=== PATIENT | female | born 1965 | race Caucasian/White ===

== ENCOUNTER 2017-09-02 08:57 | Observation (INO) | payer OTHER ==
[2017-09-02] MEDS ORDERED: Albuterol/Ipratropium NEB.SOL* Albuterol 2.5 MG/Ipratropium 0.5 MG 3 ML INH ONE (09:12)
[2017-09-02] MEDS ORDERED: NS 0.9% 1000 ML* 1,000 ML IV ONE (09:12)
[2017-09-02 09:46] LABS: ABS Basophils 0.1 10^3/ul (0-0.2); ABS Eosinophils 0.1 10^3/ul (0-0.6); ABS Monocytes 0.8 10^3/ul (0-0.8); ABS Neutrophils 10.9 10^3/ul (1.5-7.7); ABS Nucleated RBC 0 10^3/ul; Eosinophil % 0.5 % (0-6); Hematocrit 41 % (35-47); Lymphocyte % 7.5 % (25-47); Mean Corpuscular HGB Conc 35 g/dl (31-36); Mean Corpuscular Hemoglobin 30 pg (27-31); Mean Corpuscular Volume 86 fL (80-97); Mean Platelet Volume 7.9 um3 (7.4-10.4); Nucleated Red Blood Cells % 0.1; Platelet Count 277 10^3/ul (150-450); Red Blood Count 4.73 10^6/ul (4.00-5.40); Red Cell Distribution Width 13 % (10.5-15); White Blood Count 12.9 10^3/ul (3.5-10.8)
--- OUTSIDE RECORDS SUMMARY | 2017-09-02 09:56 | XMS REPORT ---
:1965 External Reference #:[id number] Author Organization [employer] Address [address] [facility] [place] [address] Phone [phone] Care Team Providers Name Role Phone Sharath Delgado MD Care Team Information Conveyor System Dispatcher Unavailable Malcolm Magallanes MD Primary Care Physician Unavailable Payers Type Date Identification Numbers Payment Provider Subscriber Commercial Expires: Policy Number: [employer] Sequeira 2015 [id number] Group Number: [id number] [address] PayID: [id number] [place] [address] Commercial Effective: 2015 Policy Number: [id number] [employer] Messi Sequeira PayID: [id number] [address] [place] [address] Problems Description No Information Family History Date Family Member(s) Problem(s) Comments General Rheumatoid Arthritis Father Lung Cancer Mother Heart Disease Siblings 2 Social History Type Date Description Comments Cigarette Use Former Cigarette Smoker Smoking Patient is a former smoker pt quit in 1982 Exercise Type/Frequency Exercises regularly Allergies, Adverse Reactions, Alerts Date Description Reaction Status Severity Comments 09/27/2005 Ceftin Urticaria active hives 01/01/2006 Norvasc active At 10 mg dose hives 06/16/2015 Lyrica Urticaria active 06/16/2015 Tetanus Toxoids cellulitus active 06/16/2015 Bactrim Urticaria active 07/25/2015 Sulfa Antibiotics Urticaria active Medications Medication Date Status Form Strength Qnty SIG Indications Ordering Provider Meloxicam 08/20 Active Tablets 7.5mg 45tab take one s tab twice Juan J, daily as M.D. needed for pain, avoid other nsaids Compression 08/20 Active Misc 2unit please use Anup Stockings /2018 s daily as Juan J, needed for M.D. leg/foot varicose veins Hydroxychloroquine 09/27 Active Tablets 200mg 60tab take 2 M06.4 Anup Sulfate s tablets by Juan J, mouth every M.D. day ongoing Wrist Brace 07/24 Active Misc 2unit use for the 75. s wrists Juan J, daily to M.D. 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 Zolpidem Tartrate Active Tablets 5mg 1/2 to 1 Unknown /0000 tab by mouth every night at bedtime as needed Vicodin Active Tablets 5-300mg take 1 by Unknown /0000 mouth every 6 hours as needed Trazodone HCL Active Tablets 50mg 1 - 2 Unknown /0000 tablet at bedtime as needed Metoprolol Active Tablets 25mg 1 by mouth Unknown Succinate ER /0000 ER 24HR every day Multi Complete Active Capsules daily Unknown /0000 Plaquenil 08/15 Hx Tablets 200mg 180ta Take 2 M06.4 bs Tablets By Juan J, - Mouth Every M.D. 09/27 Day Plaquenil 08/15 Hx Tablets 200mg 180ta Take 2 M06.4 bs Tablets By Juan J, - Mouth Every M.D. 09/27 Day Lisinopril 12/11 Hx Tablets 10mg 30tab 1 PO qd Qutayb s S. - Maghaydah 06/15 , M.D. Norvasc 12/05 Hx Tablets 10mg 30tab 1 po qd Qutayb s S. - Maghaydah 12/10 , M.D. Norvasc 11/07 Hx Tablets 5mg 30tab 1 po qd Qutayb s S. - Maghaydah 12/05 , M.D. /2005 Protonix 10/01 Hx Tablets 40mg 1 po qd Qutayb S. [facility] 11/07 , M.D. /2005 Sertraline 09/27 Hx 50mg one qd Qutayb S. [facility] 10/01 , M.D. /2005 Aspirin Enteric 09/27 Hx Tablets 81mg qd Qutaybeh S. [facility] 10/01 , M.D. /2005 Simvastatin 09/27 Hx Tablets 80mg one qd Qutayb S. [facility] 10/01 , M.D. /2005 Ambien 09/27 Hx Tablets 5mg 30tab Take One s Tablet At S. - Bedtime [facility] 06/15 , M.D. /2015 Metoprolol 09/27 Hx Tablets 50mg 60tab 1 po bid s [facility] 10/01 , M.D. /2005 Vitamin D Hx Tablets 2000Unit 1 by mouth Unknown /0000 every day - 12/24 Medications Administered in Office Medication Date Status Form Strength Qnty SIG Indications Ordering Provider PPD Administered Injection Unknown 2 Immunizations CPT Code Status Date Vaccine Reaction Lot # [id number] Given 11/07/2015 Influenza Virus Vaccine, no immediate reaction [id number] Quadrivalent, Split, noted Preservative Free [id number] Given 02/13/2014 Tdap - Tetanus/Diptheria/Acellular Pertussis Vital Signs Date Vital Result Comment 08/20/2017 Height 64.5 inches 5'4.50" Weight 282.25 lb Heart Rate 84 /min BP Systolic Sitting 132 mmHg BP Diastolic Sitting 82 mmHg Pain Level 4 O2 % BldC Oximetry 97 % BMI (Body Mass Index) 47.7 kg/m2 12/24/2016 Height 64.5 inches 5'4.50" Weight 279.50 lb Heart Rate 77 /min BP Systolic Sitting 147 mmHg BP Diastolic Sitting 96 mmHg Respiratory Rate 14 /min Pain Level 4 BMI (Body Mass Index) 47.2 kg/m2 07/24/2016 Height 64.5 inches 5'4.50" Weight 275.00 lb Heart Rate 84 /min BP Systolic Sitting 136 mmHg BP Diastolic Sitting 94 mmHg Respiratory Rate 14 /min Pain Level 6 BMI (Body Mass Index) 46.5 kg/m2 01/03/2016 Height 64.5 inches 5'4.50" Weight 263.00 lb Heart Rate 72 /min BP Systolic Sitting 106 mmHg BP Diastolic Sitting 70 mmHg Respiratory Rate 14 /min Body Temperature 97.1 F Pain Level 4 BMI (Body Mass Index) 44.4 kg/m2 11/07/2015 Height 64.5 inches 5'4.50" Weight 270.50 lb Heart Rate 72 /min BP Systolic Sitting 110 mmHg BP Diastolic Sitting 70 mmHg Respiratory Rate 14 /min Body Temperature 98.5 F BMI (Body Mass Index) 45.7 kg/m2 09/26/2015 Height 64.5 inches 5'4.50" Weight 264.00 lb Heart Rate 134 /min BP Systolic Sitting 136 mmHg BP Diastolic Sitting 86 mmHg Respiratory Rate 14 /min Body Temperature 99.0 F Pain Level 2 BMI (Body Mass Index) 44.6 kg/m2 08/16/2015 Height 64.5 inches 5'4.50" Weight 273.00 lb Heart Rate 84 /min BP Systolic Sitting 138 mmHg BP Diastolic Sitting 90 mmHg Body Temperature 98.8 F Pain Level 7 BMI (Body Mass Index) 46.1 kg/m2 07/25/2015 Height 64.5 inches 5'4.50" Weight 268.31 lb Heart Rate 88 /min BP Systolic Sitting 142 mmHg BP Diastolic Sitting 98 mmHg Body Temperature 98.9 F Pain Level 7 BMI (Body Mass Index) 45.3 kg/m2 01/01/2006 Height 64 inches 5'4" Weight 246.00 lb Heart Rate 68 /min BP Systolic Sitting 130 mmHg BP Diastolic Sitting 90 mmHg BP Systolic Standing 124 mmHg BP Diastolic Standing 90 mmHg Respiratory Rate 16 /min Body Temperature 97.9 F BMI (Body Mass Index) 42.2 kg/m2 12/05/2005 Height 64 inches 5'4" Weight 247.00 lb Heart Rate 88 /min BP Systolic Sitting 130 mmHg BP Diastolic Sitting 90 mmHg Respiratory Rate 16 /min BMI (Body Mass Index) 42.4 kg/m2 11/07/2005 Height 64 inches 5'4" Weight 242.00 lb Heart Rate 80 /min BP Systolic Sitting 140 mmHg R BP Diastolic Sitting 100 mmHg R BMI (Body Mass Index) 41.5 kg/m2 10/01/2005 Height 64 inches 5'4" Weight 250.00 lb Heart Rate 77 /min BP Systolic Sitting 138 mmHg BP Diastolic Sitting 90 mmHg BMI (Body Mass Index) 42.9 kg/m2 Results Test Date Test Result H/L Range Note Comp Metabolic Panel 08/13/2017 Sodium 140 mmol/L 135-145 Potassium 4.5 mmol/L 3.5-5.0 Chloride 104 mmol/L 101-111 Co2 Carbon Dioxide 30 mmol/L 22-32 Anion Gap 6 mmol/L 2-11 Glucose 86 mg/dL 70-100 Blood Urea Nitrogen 15 mg/dL 6-24 Creatinine 0.87 mg/dL 0.51-0.95 BUN/Creatinine Ratio 17.2 8-20 Calcium 9.9 mg/dL 8.6-10.3 Total Protein 7.1 g/dL 6.4-8.9 Albumin 3.9 g/dL 3.2-5.2 Globulin 3.2 g/dL 2-4 Albumin/Globulin Ratio 1.2 1-3 Total Bilirubin 0.50 mg/dL 0.2-1.0 Alkaline Phosphatase 70 U/L 34-104 Alt 27 U/L 7-52 Ast 26 U/L 13-39 Egfr Non- 67.9 >60 Egfr 82.1 >60 1 Laboratory test finding 08/13/2017 Erythrocyte Sed Rate 13 mm/Hr 0-30 2 C Reactive Protein 4.01 mg/L <8.01 3 CBC Auto Diff 08/13/2017 White Blood Count 6.3 10^3/uL 3.5-10.8 Red Blood Count 4.53 10^6/uL 4.00-5.40 Hemoglobin 13.9 g/dL 12.0-16.0 Hematocrit 40 % 35-47 Mean Corpuscular Volume 88 fL 80-97 Mean Corpuscular Hemoglobin 31 pg 27-31 Mean Corpuscular HGB Conc 35 g/dL 31-36 Red Cell Distribution Width 14 % 10.5-15 Platelet Count 261 10^3/uL 150-450 Mean Platelet Volume 8.8 um3 7.4-10.4 Abs Neutrophils 3.1 10^3/uL 1.5-7.7 Abs Lymphocytes 2.6 10^3/uL 1.0-4.8 Abs Monocytes 0.4 10^3/uL 0-0.8 Abs Eosinophils 0.1 10^3/uL 0-0.6 Abs Basophils 0.1 10^3/uL 0-0.2 Abs Nucleated RBC 0 10^3/uL Granulocyte % 50.1 % 38-83 Lymphocyte % 40.8 % 25-47 Monocyte % 6.7 % 0-7 Eosinophil % 1.4 % 0-6 Basophil % 1.0 % 0-2 Nucleated Red Blood Cells % 0 Laboratory test finding 12/20/2016 Erythrocyte Sed Rate 12 mm/Hr 0-30 C Reactive Protein 4.08 mg/L < 5.00 4 CBC Auto Diff 12/20/2016 White Blood Count 5.5 10^3/uL 3.5-10.8 Red Blood Count 4.92 10^6/uL 4.0-5.4 Hemoglobin 14.2 g/dL 12.0-16.0 Hematocrit 43 % 35-47 Mean Corpuscular Volume 87 fL 80-97 Mean Corpuscular Hemoglobin 29 pg 27-31 Mean Corpuscular HGB Conc 33 g/dL 31-36 Red Cell Distribution Width 13 % 10.5-15 Platelet Count 326 10^3/uL 150-450 Mean Platelet Volume 8 um3 7.4-10.4 Abs Neutrophils 3.0 10^3/uL 1.5-7.7 Abs Lymphocytes 2.0 10^3/uL 1.0-4.8 Abs Monocytes 0.3 10^3/uL 0-0.8 Abs Eosinophils 0.1 10^3/uL 0-0.6 Abs Basophils 0.1 10^3/uL 0-0.2 Abs Nucleated RBC 0.01 10^3/uL Granulocyte % 55.3 % 38-83 Lymphocyte % 36.3 % 25-47 Monocyte % 5.9 % 1-9 Eosinophil % 1.6 % 0-6 Basophil % 0.9 % 0-2 Nucleated Red Blood Cells % 0.1 Comp Metabolic Panel 12/20/2016 Sodium 137 mmol/L 133-145 Potassium 4.3 mmol/L 3.5-5.0 Chloride 102 mmol/L 101-111 Co2 Carbon Dioxide 30 mmol/L 22-32 Anion Gap 5 mmol/L 2-11 Glucose 94 mg/dL 70-100 Blood Urea Nitrogen 12 mg/dL 6-24 Creatinine 0.95 mg/dL 0.51-0.95 BUN/Creatinine Ratio 12.6 8-20 Calcium 9.9 mg/dL 8.6-10.3 Total Protein 7.2 g/dL 6.4-8.9 Albumin 3.9 g/dL 3.2-5.2 Globulin 3.3 g/dL 2-4 Albumin/Globulin Ratio 1.2 1-3 Total Bilirubin 0.60 mg/dL 0.2-1.0 Alkaline Phosphatase 91 U/L 34-104 Alt 20 U/L 7-52 Ast 27 U/L 13-39 Egfr Non- 61.5 >60 Egfr 79.1 >60 5 Laboratory test finding 07/19/2016 Erythrocyte Sed Rate 14 mm/Hr 0-30 6 C Reactive Protein 7.43 mg/L High < 5.00 7 CBC Auto Diff 07/19/2016 White Blood Count 7.0 10^3/uL 3.5-10.8 Red Blood Count 5.12 10^6/uL 4.0-5.4 Hemoglobin 14.8 g/dL 12.0-16.0 Hematocrit 44 % 35-47 Mean Corpuscular Volume 86 fL 80-97 Mean Corpuscular Hemoglobin 29 pg 27-31 Mean Corpuscular HGB Conc 34 g/dL 31-36 Red Cell Distribution Width 13 % 10.5-15 Platelet Count 284 10^3/uL 150-450 Mean Platelet Volume 8 um3 7.4-10.4 Abs Neutrophils 4.4 10^3/uL 1.5-7.7 Abs Lymphocytes 2.0 10^3/uL 1.0-4.8 Abs Monocytes 0.4 10^3/uL 0-0.8 Abs Eosinophils 0.1 10^3/uL 0-0.6 Abs Basophils 0.1 10^3/uL 0-0.2 Abs Nucleated RBC 0 10^3/uL Granulocyte % 63.9 % 38-83 Lymphocyte % 28.2 % 25-47 Monocyte % 5.9 % 1-9 Eosinophil % 0.9 % 0-6 Basophil % 1.1 % 0-2 Nucleated Red Blood Cells % 0.1 Comp Metabolic Panel 07/19/2016 Sodium 137 mmol/L 133-145 Potassium 4.1 mmol/L 3.5-5.0 Chloride 102 mmol/L 101-111 Co2 Carbon Dioxide 28 mmol/L 22-32 Anion Gap 7 mmol/L 2-11 Glucose 113 mg/dL High 70-100 Blood Urea Nitrogen 14 mg/dL 6-24 Creatinine 1.00 mg/dL High 0.51-0.95 BUN/Creatinine Ratio 14.0 8-20 Calcium 10.0 mg/dL 8.6-10.3 Total Protein 7.6 g/dL 6.4-8.9 Albumin 4.0 g/dL 3.2-5.2 Globulin 3.6 g/dL 2-4 Albumin/Globulin Ratio 1.1 1-3 Total Bilirubin 0.60 mg/dL 0.2-1.0 Alkaline Phosphatase 84 U/L 34-104 Alt 15 U/L 7-52 Ast 19 U/L 13-39 Egfr Non- 58.0 >60 Egfr 74.6 >60 8 Pthi 07/19/2016 Calcium (PTH Intact) 9.9 mg/dL 8.6-10.3 PTH Intact 5.7 pmol/L 1.3-9.3 Laboratory test finding 12/27/2015 Erythrocyte Sed Rate 16 mm/Hr 0-30 9 C Reactive Protein 3.93 mg/L < 5.00 10 CBC Auto Diff 12/27/2015 White Blood Count 7.3 10^3/uL 3.5-10.8 Red Blood Count 5.23 10^6/uL 4.0-5.4 Hemoglobin 15.2 g/dL 12.0-16.0 Hematocrit 45 % 35-47 Mean Corpuscular Volume 87 fL 80-97 Mean Corpuscular Hemoglobin 29 pg 27-31 Mean Corpuscular HGB Conc 34 g/dL 31-36 Red Cell Distribution Width 13 % 10.5-15 Platelet Count 353 10^3/uL 150-450 Mean Platelet Volume 8 um3 7.4-10.4 Abs Neutrophils 4.6 10^3/uL 1.5-7.7 Abs Lymphocytes 2.2 10^3/uL 1.0-4.8 Abs Monocytes 0.4 10^3/uL 0-0.8 Abs Eosinophils 0.1 10^3/uL 0-0.6 Abs Basophils 0.1 10^3/uL 0-0.2 Abs Nucleated RBC 0.01 10^3/uL Granulocyte % 62.5 % 38-83 Lymphocyte % 29.9 % 25-47 Monocyte % 5.4 % 1-9 Eosinophil % 1.2 % 0-6 Basophil % 1.0 % 0-2 Nucleated Red Blood Cells % 0.1 Comp Metabolic Panel 12/27/2015 Sodium 137 mmol/L 133-145 Potassium 4.3 mmol/L 3.5-5.0 Chloride 102 mmol/L 101-111 Co2 Carbon Dioxide 28 mmol/L 22-32 Anion Gap 7 mmol/L 2-11 Glucose 91 mg/dL 70-100 Blood Urea Nitrogen 15 mg/dL 6-24 Creatinine 0.92 mg/dL 0.51-0.95 BUN/Creatinine Ratio 16.3 8-20 Calcium 10.4 mg/dL High 8.6-10.3 Total Protein 8.3 g/dL 6.4-8.9 Albumin 4.5 g/dL 3.2-5.2 Globulin 3.8 g/dL 2-4 Albumin/Globulin Ratio 1.2 1-3 Total Bilirubin 0.60 mg/dL 0.2-1.0 Alkaline Phosphatase 85 U/L 34-104 Alt 18 U/L 7-52 Ast 20 U/L 13-39 Egfr Non- 64.1 >60 Egfr 82.4 >60 11 Urine Culture And Sensitivities 11/29/2015 Urine Culture SEE RESULT BELOW 12, 13 Urine Culture And Sensitivities 11/07/2015 Urine Culture SEE RESULT BELOW 14 Urinalysis Profile 11/07/2015 Urine Color Yellow Urine Appearance Clear Urine Specific Golden 1.013 1.010-1.030 Urine pH 5.0 5-9 Urine Urobilinogen Negative Negative Urine Ketones Negative Negative Urine Protein Negative Negative Urine Leukocytes Negative Negative Urine Blood Negative Negative Urine Nitrite Negative Negative Urine Bilirubin Negative Negative Urine Glucose Negative Negative Laboratory test finding 09/12/2015 C Reactive Protein 6.18 mg/L High < 5.00 15 Erythrocyte Sed Rate 13 mm/Hr 0-30 CBC Auto Diff 09/12/2015 White Blood Count 6.0 10^3/uL 3.5-10.8 Red Blood Count 4.48 10^6/uL 4.0-5.4 Hemoglobin 13.1 g/dL 12.0-16.0 Hematocrit 40 % 35-47 Mean Corpuscular Volume 89 fL 80-97 Mean Corpuscular Hemoglobin 29 pg 27-31 Mean Corpuscular HGB Conc 33 g/dL 31-36 Red Cell Distribution Width 13 % 10.5-15 Platelet Count 256 10^3/uL 150-450 Mean Platelet Volume 8 um3 7.4-10.4 Abs Neutrophils 3.4 10^3/uL 1.5-7.7 Abs Lymphocytes 2.0 10^3/uL 1.0-4.8 Abs Monocytes 0.3 10^3/uL 0-0.8 Abs Eosinophils 0.2 10^3/uL 0-0.6 Abs Basophils 0.1 10^3/uL 0-0.2 Abs Nucleated RBC 0.01 10^3/uL Granulocyte % 57.5 % 38-83 Lymphocyte % 33.0 % 25-47 Monocyte % 4.8 % 1-9 Eosinophil % 3.7 % 0-6 Basophil % 1.0 % 0-2 Nucleated Red Blood Cells % 0.1 Comp Metabolic Panel 09/12/2015 Sodium 144 mmol/L 133-145 Potassium 4.0 mmol/L 3.5-5.0 Chloride 107 mmol/L 101-111 Co2 Carbon Dioxide 28 mmol/L 22-32 Anion Gap 9 mmol/L 2-11 Glucose 94 mg/dL 70-100 Blood Urea Nitrogen 12 mg/dL 6-24 Creatinine 0.86 mg/dL 0.51-0.95 BUN/Creatinine Ratio 14.0 8-20 Calcium 9.3 mg/dL 8.6-10.3 Total Protein 6.5 g/dL 6.4-8.9 Albumin 3.7 g/dL 3.2-5.2 Globulin 2.8 g/dL 2-4 Albumin/Globulin Ratio 1.3 1-3 Total Bilirubin 0.30 mg/dL 0.2-1.0 Alkaline Phosphatase 69 U/L 34-104 Alt 32 U/L 7-52 Ast 28 U/L 13-39 Egfr Non- 69.3 >60 Egfr 89.1 >60 16 Laboratory test finding 07/26/2015 Angiotensin Converting Enzyme 51 U/L 8 - 53 17 C Reactive Protein 2.09 mg/L < 5.00 18 Celiac Panel 07/26/2015 Tissue Transglutaminase IgA Ab <1.2 U/mL 19 Immunoglobulin A 437 mg/dL 61 - 356 Celiac Interpretation See Comment 20 Laboratory test finding 07/26/2015 Cyclic Citrullinated Pep Igg <15.6 U 21 Erythrocyte Sed Rate 18 mm/Hr 0-30 22 Hla B27 07/26/2015 Hla B27 Negative 23 Hla B27 Interp See Comment 24 Laboratory test finding 07/26/2015 Anti Double Stranded Dna AB <12.3 IU/mL 25 Lyme Disease Serology Negative Negative 26 Uric Acid 4.7 mg/dL 2.3-6.6 27 Rheumatoid Factor <15 IU/mL <15 28 Anti Nuclear Antibody 1.1 U 29 T3 Total 1.24 ng/mL 0.87-1.78 30 Creatine Kinase(CK) 41 U/L 10-223 31 Vitamin B12 398 pg/mL 180-914 32 Free Cortisol Serum 0.10 g/dL 33 1 Because ethnic data is not always readily available, this report includes an eGFR for both -Americans and non- Americans. The National Kidney Disease Education Program (NKDEP) does not endorse the use of the MDRD equation for patients that are not between the ages of 18 and 70, are , have extremes of body size, muscle mass, or nutritional status, or are non- or non-. According to the National Kidney Foundation, irrespective of diagnosis, the stage of the disease is based on the level of kidney function: Stage Description GFR(mL/min/1.73 m(2)) 1 Kidney damage with normal or decreased GFR 90 2 Kidney damage with mild decrease in GFR 60-89 3 Moderate decrease in GFR 30-59 4 Severe decrease in GFR 15-29 5 Kidney failure <15 (or dialysis) 2 Please check 2 days before follow up 3 Please check 2 days before follow up 4 Acute inflammation: >10.00 5 Because ethnic data is not always readily available, this report includes an eGFR for both -Americans and non- Americans. The National Kidney Disease Education Program (NKDEP) does not endorse the use of the MDRD equation for patients that are not between the ages of 18 and 70, are , have extremes of body size, muscle mass, or nutritional status, or are non- or non-. According to the National Kidney Foundation, irrespective of diagnosis, the stage of the disease is based on the level of kidney function: Stage Description GFR(mL/min/1.73 m(2)) 1 Kidney damage with normal or decreased GFR 90 2 Kidney damage with mild decrease in GFR 60-89 3 Moderate decrease in GFR 30-59 4 Severe decrease in GFR 15-29 5 Kidney failure <15 (or dialysis) 6 Please check 2 days before the visit 7 Acute inflammation: >10.00 8 Because ethnic data is not always readily available, this report includes an eGFR for both -Americans and non- Americans. The National Kidney Disease Education Program (NKDEP) does not endorse the use of the MDRD equation for patients that are not between the ages of 18 and 70, are , have extremes of body size, muscle mass, or nutritional status, or are non- or non-. According to the National Kidney Foundation, irrespective of diagnosis, the stage of the disease is based on the level of kidney function: Stage Description GFR(mL/min/1.73 m(2)) 1 Kidney damage with normal or decreased GFR 90 2 Kidney damage with mild decrease in GFR 60-89 3 Moderate decrease in GFR 30-59 4 Severe decrease in GFR 15-29 5 Kidney failure <15 (or dialysis) 9 Please check 2 days before her visit 10 Acute inflammation: >10.00 11 Because ethnic data is not always readily available, this report includes an eGFR for both -Americans and non- Americans. The National Kidney Disease Education Program (NKDEP) does not endorse the use of the MDRD equation for patients that are not between the ages of 18 and 70, are , have extremes of body size, muscle mass, or nutritional status, or are non- or non-. According to the National Kidney Foundation, irrespective of diagnosis, the stage of the disease is based on the level of kidney function: Stage Description GFR(mL/min/1.73 m(2)) 1 Kidney damage with normal or decreased GFR 90 2 Kidney damage with mild decrease in GFR 60-89 3 Moderate decrease in GFR 30-59 4 Severe decrease in GFR 15-29 5 Kidney failure <15 (or dialysis) 12 [id number] 13 SEE RESULT BELOW Name: MARION SEQUEIRA : [address]: Sharath Delgado MD Acct: [id number] Unit: [id number] AGE: 50 Location: [facility] Re11/29/15 SEX: F Status: REG REF SPEC: [id number] CASA: 11/29/15 [facility] DR: Sharath Delgado MD REQ: [id number] RECD: 11/29/15 STATUS: CHICA AVILA DR: Messi Rainey MD _ SOURCE: URINE SPDESC: ORDERED: Urine Culture COMMENTS: [id number] Procedure Result Reported Site Urine Culture Final 12/01/15- 0914 ML Organism 1 ESCHERICHIA COLI [place] Count >100,000 (Many) CFU/ML 1. ESCHERICHIA COLI M.I.C. RX --------- ------ Ampicillin 8 S Cefazolin <=4 S Cefepime <=1 S Ceftriaxone <=1 S Ciprofloxacin <=0.25 S Gentamicin <=1 S Levofloxacin <=0.12 S Meropenem <=0.25 S Nitrofurantoin <=16 S Tetracycline <=1 S Pipercillin/Tazobactam <=4 S Trimethoprim/Sulfamethoxazole <=20 S Amoxicillin/Clavulanic Acid <=2 S Aztreonam <=1 S Contact the Microbiology Department for any additional antibiotic reporting. * ML - MAIN LAB ([facility]) . END OF REPORT * ML=Testing performed at Main Lab DEPARTMENT OF PATHOLOGY, [address] [place] [address] Fadi Yang M.D. Director [facility] # [id number] 14 SEE RESULT BELOW Name: MARION SEQUEIRA : [address]: Messi Rainey MD Acct: [id number] Unit: [id number] AGE: 50 Location: [facility] Re11/07/15 SEX: F Status: REG REF SPEC: [id number] CASA: 11/07/15-1454 [facility] DR: Messi Rainey MD REQ: [id number] RECD: 11/08/15 STATUS: COMP _ SOURCE: URINE SPDESC: ORDERED: Urine Culture Procedure Result Reported Site Urine Culture Final 11/09/15- 1331 ML No Growth (<1,000 CFU/mL) * ML - MAIN LAB ([facility]) . END OF REPORT * ML=Testing performed at Main Lab DEPARTMENT OF PATHOLOGY, [address] [place] [address] Fadi Yang M.D. Director [facility] # [id number] 15 Acute inflammation: >10.00 16 Because ethnic data is not always readily available, this report includes an eGFR for both -Americans and non- Americans. The National Kidney Disease Education Program (NKDEP) does not endorse the use of the MDRD equation for patients that are not between the ages of 18 and 70, are , have extremes of body size, muscle mass, or nutritional status, or are non- or non-. According to the National Kidney Foundation, irrespective of diagnosis, the stage of the disease is based on the level of kidney function: Stage Description GFR(mL/min/1.73 m(2)) 1 Kidney damage with normal or decreased GFR 90 2 Kidney damage with mild decrease in GFR 60-89 3 Moderate decrease in GFR 30-59 4 Severe decrease in GFR 15-29 5 Kidney failure <15 (or dialysis) 17 Test Performed by: [place] [address] Cardiology Nurse Practitioner: Jaun Hill II, M.D., Ph.D. 18 Acute inflammation: >10.00 19 REFERENCE VALUE <4.0 (Negative) Test Performed by: [place] [address] Cardiology Nurse Practitioner: Jaun Hill II, M.D., Ph.D. 20 Negative serology. Celiac disease unlikely. However, approximately 10% of patients with celiac disease are seronegative. Also, patients who are already adhering to a gluten-free diet may be seronegative. If celiac disease is highly clinically suspected, consider HLA-DQ typing. Test Performed by: [place] [address] Cardiology Nurse Practitioner: Jaun Hill II, M.D., Ph.D. 21 REFERENCE VALUE <20.0 (Negative) Test Performed by: [place] [address] Cardiology Nurse Practitioner: Jaun Hill II, M.D., Ph.D. 22 Please check this week 23 REFERENCE VALUE Not Applicable 24 RESULT: HLA-B27 antigen was not detected. ADDITIONAL INFORMATION Method: Flow Cytometry Performing Laboratory CLIA# [id number] Test Performed by: [place] [address] Cardiology Nurse Practitioner: Jaun Hill II, M.D., Ph.D. 25 REFERENCE VALUE <30.0 (Negative) Test Performed by: [place] [address] Cardiology Nurse Practitioner: Jaun Hill II, M.D., Ph.D. 26 Serologic response to B. burgdorferi infection is not detected, but cannot rule out early infection during which low or undetectable antibody levels to B. burgdorferi may be present. If clinically indicated, a new serum specimen should be submitted in 7-14 days. Test Performed by: [place] [address] Cardiology Nurse Practitioner: Jaun Hill II, M.D., Ph.D. 27 Please check this week 28 Test Performed by: [place] [address] Cardiology Nurse Practitioner: Jaun Hill II, M.D., Ph.D. 29 Interpretation: Weak Positive (1.1-2.9) REFERENCE VALUE <=1.0 (Negative) Test Performed by: [place] [address] Cardiology Nurse Practitioner: Jaun Hill II, M.D., Ph.D. 30 Please check this week 31 Please check this week 32 Normal Range 180 to 914 Indeterminate Range 145 to 180 Deficient Range <145 33 Adult Reference Ranges for Cortisol, Free, LC/MS/MS: 8:00 - 10:00 AM 0.07-0.93 mcg/dL 4:00 - 6:00 PM 0.04-0.45 mcg/dL 10:00 - 11:00 PM 0.04-0.35 mcg/dL Test Performed by: [facility] [address] [place] [address] Procedures Date CPT Code Description Status 07/08/2010 67691 EKG, Interpretation Only Completed 05/18/2010 98055 Holter Monitoring 24 HR New Completed 10/01/2005 52801 EKG Tracing & Interpretation Completed 10/01/2005 99301 EKG Tracing & Interpretation Completed 09/19/2005 12513 Selective Coronary Angioplasty Completed 09/19/2005 87025 S/I/R Inj Proc Vent And Or Atrial Completed 09/19/2005 63006 S/I/R Inj Proc Vent And Or Atrial Completed 09/19/2005 69289 Coronary Angiography Completed 09/19/2005 [id number] Inj Proc LFT Vent/LFT Atrl Angio Completed 09/19/2005 48355 Inj Proc LFT Vent/LFT Atrl Angio Completed 09/19/2005 14169 Left Heart Catheterization Completed 09/18/2005 16794 Stress ECHO Interpretation/Report Hospital Completed 09/18/2005 01389 Stress ECHO Interpretation/Report Hospital Completed 09/18/2005 21387 Treadmill Interp/Report Only Completed 09/18/2005 25183 Stress Test Supervsn W/Out I/R Completed 09/18/2005 88288 Stress Test Supervsn W/Out I/R Completed Encounters Type Date Location Provider CPT E/M Dx Office Visit 12/24/2016 [facility] Anup Arita M.D. 70925 M06.4 9:00a Of Mouna Z79.899 Office Visit 07/24/2016 8:40a [facility] Anup Arita 10987 M06.4 Mouna Thorne Z79.899 M77.00 Office Visit 01/03/2016 11:40a [facility] Anup Arita 94360 M06.4 Mouna Thorne Z79.899 E83.52 Office Visit 11/07/2015 2:00p [facility] Messi Rainey, 70144 Z23 Infectious Diseases Yaw.Azalea R30.0 R82.7 Z87.440 Office Visit 09/26/2015 10:20a [facility] Anup Arita, 06304 M06.4 [facility] M.DTrena Z79.899 M79.1 Office Visit 08/16/2015 10:00a [facility] Anup Arita, 33348 M06.4 [facility] M.D. Z79.899 M79.1 M85.80 Office Visit 07/25/2015 3:00p [facility] Anup Arita, 07053 M06.4 [facility] M.DTrena R20.8 M79.1 Z79.899 Office Visit 01/01/2006 2:40p [facility] Qutaybeh S. Maghaydah, 75747 401.1 M.D. Office Visit 12/05/2005 3:20p [facility] Qutaybeh S. Maghaydah, 20586 401.0 M.D. Office Visit 11/07/2005 2:40p [facility] Qutaybeh S. Maghaydah, 44923 401.0 M.D. Office Visit 10/01/2005 9:40a [facility] Qutaybeh S. Maghaydah, 90416 786.50 M.D. 401.0 Plan of Care Future Appointment(s):10/24/2017 11:20 am - Anup Arita M.D. 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
[2017-09-02 09:58] LABS: INR 1.1 (0.77-1.02)
[2017-09-02 10:17] LABS: EGFR Non-African American 74.7 (>60)
[2017-09-02] MEDS ORDERED: Levofloxacin 750 MG IVPREMIX(* 750 MG/150 ML BAG IVPB ONE (10:35)
[2017-09-02] MEDS ORDERED: predniSONE TAB* 20 MG PO ONE (10:35)
--- NOTE | 2017-09-02 11:03 | RAD ---
INDICATION: Cough. Short of breath COMPARISON: July 26, 2015 TECHNIQUE: PA and lateral dual-energy views were obtained. FINDINGS: Bones/Soft Tissues: There are no acute bony findings. Cardiomediastinal: The cardiomediastinal silhouette is normal. Lungs: There are right middle lobe and lingular infiltrates Pleura: There are no pleural effusions. Other: None IMPRESSION: RIGHT MIDDLE LOBE AND LINGULAR INFILTRATES.
--- NOTE | 2017-09-02 11:07 | ED ---
Shortness of Breath - HPI Summary HPI Summary: This is Edilberto Conde, documenting for attending Nicho Wan MD. Pt is a 52 y/o F who presents to ED c/o shortness of breath. She rated her pain as 8/10 in severity at triage and SOB is exacerbated by walking. Symptoms began 8 days ago with a sore throat and coughing, and they progressed throughout the week. She states she feels like crap. Hasnt eaten since because she feels nauseous, but she has been drinking a lot of water. Notes bilateral upper back pain, chest pain, pain in lower abdominal area when coughing, brown urine, and an aching bladder. Two nights ago she notes a subjective fever of 103, but did not visit the ED. SOB aggravated with walking. Denies body aches and coughing up mucous. Positive sick contact with and grandson who have pneumonia. Pt denies PMHx of CHF or COPD. Pt was a smoker 35 years ago. PMHx of rheumatoid arthritis and hypertension. - History of Current Complaint Chief Complaint: EDShortnessOfBreath Time Seen by Provider: 09/02/17 09:04 Hx Obtained From: Patient, Family/Sand Caster Onset/Duration: Lasting Days Current Severity: Severe - 8/10 at triage Aggrevating Factors: Movement - Walking Associated Signs & Symptoms: Cough (Nonproductive), Chest Pain Unrelated to Cough, Fever - Allergy/Home Medications Allergies/Adverse Reactions: Allergies Allergy/AdvReac Type Severity Reaction Status Date / Time amlodipine Allergy Intermediate Hives Verified 09/02/17 11:52 amoxicillin Allergy Intermediate Hives Verified 09/02/17 11:53 cefuroxime Allergy Intermediate Hives Verified 09/02/17 11:53 clavulanic acid Allergy Intermediate Hives Verified 09/02/17 11:54 pregabalin Allergy Intermediate Hives Verified 09/02/17 11:55 Sulfa (Sulfonamide Allergy Intermediate Hives Verified 09/02/17 11:55 Antibiotics) Home Medications: Home Medications Hydrocodone/Acetaminophen [Hydrocodone Bitartrate/AC] 1 tab PO Q6HR PRN [History Confirmed 09/02/17] Hydroxychloroquine TAB* [Plaquenil TAB*] 400 mg PO DAILY 09/02/17 [History Confirmed 09/02/17] Meloxicam(NF) [Mobic(NF)] 7.5 mg PO BID PRN 09/02/17 [History Confirmed 09/02/17 ] Metoprolol Succinate XL TAB* [Toprol XL TAB*] 25 mg PO DAILY 09/02/17 [History Confirmed 09/02/17] Sertraline* [Zoloft*] 100 mg PO DAILY 09/02/17 [History Confirmed 09/02/17] Zolpidem TAB* [Ambien TAB*] 10 mg PO BEDTIME PRN 09/02/17 [History Confirmed ] traZODone TAB* [Desyrel TAB*] 50 - 100 mg PO BEDTIME 09/02/17 [History Confirmed 09/02/17] PMH/Surg Hx/FS Hx/Imm Hx Cardiovascular History: Reports: Hx Hypertension Musculoskeletal History: Reports: Hx Rheumatoid Arthritis Psychiatric History: Reports: Hx Depression - Cancer History Hx Chemotherapy: No Hx Radiation Therapy: No Infectious Disease History: No Infectious Disease History: Denies: Traveled Outside the [place] in Last 30 Days - Family History Known Family History: Positive: Other - lung cancer and colon cancer - Social History Alcohol Use: Rare Substance Use Type: Reports: None Smoking Status (MU): Former Smoker Review of Systems Positive: Fever - subjective Positive: Sore Throat Positive: Chest Pain Positive: Shortness Of Breath, Cough - non productive Positive: Abdominal Pain - lower abdominal pain when coughing, Nausea Positive: Other - bilateral upper back pain, All Other Systems Reviewed And Are Negative: Yes Physical Exam - Summary Physical Exam Summary: Appearance: Well appearing, no pain distress Skin: warm, dry, reflects adequate perfusion Head/face: normal Eyes: EOMI, SHELBIE ENT: exudate on tonsils, mucous membranes are moist Neck: supple, non-tender Respiratory: wheezes in right lung, crackles in upper left, breath sounds present Cardiovascular: RRR, pulses symmetrical Abdomen: non-tender, soft Bowel Sounds: present Musculoskeletal: normal, strength/ROM intact Neuro: normal, sensory motor intact, A&Ox3 Triage Information Reviewed: Yes Vital Signs On Initial Exam: Initial Vitals Temp Pulse Resp BP Pulse Ox 98.2 F 91 18 114/77 89 09/02/17 08:59 09/02/17 08:59 09/02/17 08:59 07/16/18 08:59 09/02/17 08:59 Vital Signs Reviewed: Yes Diagnostics - Vital Signs Vital Signs Temp Pulse Resp BP Pulse Ox 09/02/17 10:00 110 26 88 09/02/17 09:32 93 15 94 09/02/17 09:14 96 120/87 91 09/02/17 09:13 102 92 09/02/17 08:59 98.2 F 91 18 114/77 89 - Laboratory Lab Results: Lab Results 09/02/17 09/02/17 09/02/17 Range/Units 09:35 09:35 09:36 WBC (3.5-10.8) 10^3/ul RBC (4.00-5.40) 10^6/ul Hgb (12.0-16.0) g/dl Hct (35-47) % MCV (80-97) fL MCH (27-31) pg MCHC (31-36) g/dl RDW (10.5-15) % Plt Count (150-450) 10^3/ul MPV (7.4-10.4) um3 Neut % (Auto) (38-83) % Lymph % (Auto) (25-47) % [place] % (Auto) (0-7) % Eos % (Auto) (0-6) % Baso % (Auto) (0-2) % Absolute Neuts (auto) (1.5-7.7) 10^3/ul Absolute Lymphs (auto) (1.0-4.8) 10^3/ul Absolute Monos (auto) (0-0.8) 10^3/ul Absolute Eos (auto) (0-0.6) 10^3/ul Absolute Basos (auto) (0-0.2) 10^3/ul Absolute Nucleated RBC 10^3/ul Nucleated RBC % INR (Anticoag Therapy) 1.10 H (0.77-1.02) VBG pH (7.33-7.43) VBG pCO2 (41-51) mmHg VBG pO2 (35-45) mmHg VBG HCO3 (24-28) mmol/L VBG O2 Saturation (70-80) % VBG Base Excess (0-4) Sodium 134 L (135-145) mmol/L Potassium 3.0 L (3.5-5.0) mmol/L Chloride 95 L (101-111) mmol/L Carbon Dioxide 27 (22-32) mmol/L Anion Gap 12 H (2-11) mmol/L BUN 11 (6-24) mg/dL Creatinine 0.80 (0.51-0.95) mg/dL Est GFR ( Amer) 90.4 (>60) Est GFR (Non-Af Amer) 74.7 (>60) BUN/Creatinine Ratio 13.8 (8-20) Glucose 99 (70-100) mg/dL Lactic Acid 0.9 (0.5-2.0) mmol/L Calcium 9.3 (8.6-10.3) mg/dL Total Bilirubin 0.70 (0.2-1.0) mg/dL AST 27 (13-39) U/L ALT 20 (7-52) U/L Alkaline Phosphatase 102 (34-104) U/L Total Creatine Kinase 100 (10-223) U/L Troponin I 0.03 (<0.04) ng/mL C-Reactive Protein 220.10 H (<8.01) mg/L B-Natriuretic Peptide ( - 100) pg/mL Total Protein 7.7 (6.4-8.9) g/dL Albumin 3.7 (3.2-5.2) g/dL Globulin 4.0 (2-4) g/dL Albumin/Globulin Ratio 0.9 L (1-3) Monoscreen 09/02/17 09/02/17 09/02/17 Range/Units 09:36 09:37 09:37 WBC 12.9 H (3.5-10.8) 10^3/ul RBC 4.73 (4.00-5.40) 10^6/ul Hgb 14.0 (12.0-16.0) g/dl Hct 41 (35-47) % MCV 86 (80-97) fL MCH 30 (27-31) pg MCHC 35 (31-36) g/dl RDW 13 (10.5-15) % Plt Count 277 (150-450) 10^3/ul MPV 7.9 (7.4-10.4) um3 Neut % (Auto) 84.8 H (38-83) % Lymph % (Auto) 7.5 L (25-47) % [place] % (Auto) 6.5 (0-7) % Eos % (Auto) 0.5 (0-6) % Baso % (Auto) 0.7 (0-2) % Absolute Neuts (auto) 10.9 H (1.5-7.7) 10^3/ul Absolute Lymphs (auto) 1.0 (1.0-4.8) 10^3/ul Absolute Monos (auto) 0.8 (0-0.8) 10^3/ul Absolute Eos (auto) 0.1 (0-0.6) 10^3/ul Absolute Basos (auto) 0.1 (0-0.2) 10^3/ul Absolute Nucleated RBC 0 10^3/ul Nucleated RBC % 0.1 INR (Anticoag Therapy) (0.77-1.02) VBG pH 7.43 (7.33-7.43) VBG pCO2 39 L (41-51) mmHg VBG pO2 72 H (35-45) mmHg VBG HCO3 26.1 (24-28) mmol/L VBG O2 Saturation 97.0 H (70-80) % VBG Base Excess 1.6 (0-4) Sodium (135-145) mmol/L Potassium (3.5-5.0) mmol/L Chloride (101-111) mmol/L Carbon Dioxide (22-32) mmol/L Anion Gap (2-11) mmol/L BUN (6-24) mg/dL Creatinine (0.51-0.95) mg/dL Est GFR ( Amer) (>60) Est GFR (Non-Af Amer) (>60) BUN/Creatinine Ratio (8-20) Glucose (70-100) mg/dL Lactic Acid (0.5-2.0) mmol/L Calcium (8.6-10.3) mg/dL Total Bilirubin (0.2-1.0) mg/dL AST (13-39) U/L ALT (7-52) U/L Alkaline Phosphatase (34-104) U/L Total Creatine Kinase (10-223) U/L Troponin I (<0.04) ng/mL C-Reactive Protein (<8.01) mg/L B-Natriuretic Peptide 43 ( - 100) pg/mL Total Protein (6.4-8.9) g/dL Albumin (3.2-5.2) g/dL Globulin (2-4) g/dL Albumin/Globulin Ratio (1-3) Monoscreen Pending Result Diagrams: 09/02/17 09:37 09/02/17 09:35 Lab Statement: Any lab studies that have been ordered have been reviewed, and results considered in the medical decision making process. - Radiology CXR Radiology Interpretation Completed By: Radiologist - 0905. RIGHT MIDDLE LOBE AND LINGULAR INFILTRATES. ED Physician reviewed this report. Re-Evaluation - Re-Evaluation First Eval Re-Evaluation Time: 10:37 Change: Improved - no longer hypoxic but she is on 4L of oxygen Course/Dx - Course Course Of Treatment: Patient presents with worsening URI symptoms now with cough , shortness of breath and chest discomfort. Found to have infiltrates in the right lower lobe and lingula. Started IV fluids, antibiotics and breathing treatments with some improvement. She will require hospitalization for hypoxia. She has required 4 L of oxygen here. - Diagnoses Provider Diagnoses: Pneumonia, Hypoxia - Critical Care Time Critical Care Time: 30-74 min - Critical care time is exclusive of separately billed procedures Discharge - Sign-Out/Discharge Documenting (check all that apply): Patient Departure - Discharge Plan Condition: Guarded Disposition: ADMITTED TO [facility] - Billing Disposition and Condition Condition: GUARDED Disposition: Admitted to [facility]
[2017-09-02] MEDS ORDERED: Magnesium Hydroxide LIQ* 30 ML UDC PO PRN (12:08)
[2017-09-02] MEDS ORDERED: Al Hydrox/Mg Hydrox/Simet LIQ* 30 ML UDC PO PRN (12:08)
[2017-09-02] MEDS ORDERED: Acetaminophen TAB* 325 MG PO PRN (12:08)
[2017-09-02] MEDS ORDERED: Zolpidem TAB* 10 MG PO PRN (12:19)
[2017-09-02] MEDS ORDERED: Potassium Chlor TAB* 10 MEQ TAB.ER PO ONE ×2 (12:24→21:00)
[2017-09-02 13:07] LABS: Urine Appearance Cloudy; Urine Blood Negative (Negative); Urine Color Yellow; Urine Ketones Trace (Negative); Urine Protein Negative (Negative); Urine Red Blood Cell 3+(>10/hpf) (Absent); Urine Specific Gravity 1.011 (1.010-1.030); Urine Urobilinogen Negative (Negative); Urine White Blood Cell 3+(>20/hpf) (Absent)
[2017-09-02] MEDS: Enoxaparin(*) 40 MG/0.4 ML SYR SUBCUT SCH (13:39)
[2017-09-02] MEDS: NS 0.9% 1000 ML* 1,000 ML IV SCH (13:39)
[2017-09-02] MEDS: guaiFENesin LIQ* 100 MG/5 ML UDC PO PRN ×2 (13:46→21:55)
[2017-09-02] MEDS: Albuterol 2.5 MG/3 ML NEB.SOL* (0.083%) INH PRN ×2 (14:23→21:58)
--- NOTE | 2017-09-02 14:34 | HP ---
CC: Dr. Magallanes * HISTORY AND PHYSICAL: DATE OF ADMISSION: 09/02/17 PRIMARY CARE PROVIDER: Dr. Magallanes. PROVIDER: Rhoda Cheng NP ATTENDING PHYSICIAN WHILE IN THE HOSPITAL: Dr. Key Barrios * (dictated by Rhoda Cheng NP). CHIEF COMPLAINT: 1. Shortness of breath. 2. Fever. HISTORY OF PRESENT ILLNESS: Ms. Sequeira is a 52-year-old female patient, who carries a past medical history of depression, hypertension, palpitations, rheumatoid arthritis, and a history of cystitis, who presented to the emergency room with progressive shortness of breath and cough with fever and chills. Ms. Sequeira reports that last Saturday, she started with a sore throat that progressively got worse and then on Saturday, she developed a cough. She reports that her cough got progressively worse since Saturday. On , she developed a fever. She said her initial fever was 103 at home. She also reports that she did have a fever last evening as well. She does report that she had increased shortness of breath x1 week with a nonproductive cough. She also reports fever, chills, nausea, and decreased appetite since . She states that she has had poor p.o. intake since . She also reports some upper chest pain, worse with deep breath and coughing. She also reports some general fatigue and increased muscle and joint aches. She denies any hemoptysis. She denies any diarrhea or vomiting. She denies any gross hematuria. She does report some urinary frequency. She denies any weakness or sensory loss. She denies any visual complaints. Denies any difficulty swallowing. She denies any rashes or lesions. Denies any depression or anxiety at this time. While in the emergency room, she had routine lab work drawn. She was found to have leukocytosis with a white count of 12.9 and to be hypoxic with initial O2 saturation on room air of 89%. On admission, she has an elevated CRP of 220.10. She had a Monospot that was negative. Given her hypoxia on room air and chest x- ray showing right middle lobe pneumonia, we were asked to see and evaluate her for admission. PAST MEDICAL HISTORY: Significant for: 1. Depression. 2. Hypertension. 3. Palpitations. 4. Rheumatoid arthritis. 5. History of cystitis. PAST SURGICAL HISTORY: 1. Hysterectomy. 2. Knee surgery. 3. Cholecystectomy. MEDICATIONS: Home medications include: 1. Sertraline HCl 100 mg p.o. daily. 2. Metoprolol succinate ER 25 mg p.o. daily. 3. Ambien 10 mg at h.s. 4. Trazodone 50 mg at h.s. 5. Plaquenil 400 mg at h.s. 6. Hydrocodone/acetaminophen 10/300 as needed for pain. ALLERGIES TO MEDICATIONS: AUGMENTIN, BACTRIM, SULFA, PENICILLIN, CEFTIN, NORVASC, LYRICA. FAMILY HISTORY: Mother with a history of atrial fibrillation. Brother with a history of congestive heart failure and pacemaker. No reported family history of diabetes. Cancer: Mother with history of colon cancer, father with lung cancer, and brother with pancreatic cancer; father passed from lung cancer at age 51, brother with pancreatic cancer at 62, and mother of the colon cancer at age 88. SOCIAL HISTORY: The patient reports that she quit smoking approximately 33 years ago; at that time, she smoked 1 pack per day x2 years. She has occasional alcohol use. Denies any illicit drug use. She is . Surrogate decision maker in the event she is unable to make her own decisions is her daughter, Cynthia. Her phone number is [phone]. She is a full code. PHYSICAL EXAMINATION GENERAL: At this time, Ms. Sequeira is a 52-year-old female. She is calm and resting on the stretcher in the emergency room. She does appear to have mild respiratory distress. VITAL SIGNS: Blood pressure 120/87, temperature was 98.2, heart rate was 110, respirations are 24, heart rate is 89, O2 saturation is 100% on 4 L nasal cannula. HEENT: Head is atraumatic, normocephalic. Eyes: EOMs are intact. Sclerae anicteric and not pale. Oral mucosa appears to be dry. There is mild oropharyngeal erythema with mild tonsillar exudate noted. NECK: Supple. LUNGS: Diminished with crackles on the right base and left base. Mild expiratory wheezes. There are no rales. HEART: S1, S2. Regular rate and rhythm. There are no murmurs, rubs, or gallops. ABDOMEN: Soft, obese, nontender. Bowel sounds are present x4. EXTREMITIES: Pulses are +2 throughout. She is able to move all 4 extremities with 5/5 strength. NEUROLOGIC: She is alert and oriented x3. Speech is clear. There are no gross focal deficits. SKIN: Intact. DIAGNOSTIC STUDIES/LAB DATA: WBCs were 12.9, hemoglobin was 14, hematocrit was 41, platelet count was 277, neutrophils were 84.8, lymphs were 7.5. INR was 1.10. Venous pH was 7.43, venous PCO2 was 39, venous PO2 was 72, venous HCO3 was 26.1, venous O2 saturation was 97%. Sodium was 134, potassium 3.0, chloride was 95, carbon dioxide was 27, anion gap was 12, BUN was 11, creatinine 0.80, lactic acid was 0.9. Troponin is 0.03. C-reactive protein is 220.10. BNP was 43. Monospot was negative. Rapid strep is pending. Urine for legionella and S. pneumoniae are both pending. Urinalysis is also pending at this time. EKG shows a sinus rhythm at a rate of 94. Chest x-ray showed radiologist's impression: Right middle lobe and lingular infiltrates on the right. No pleural effusions. ASSESSMENT AND PLAN: Ms. Sequeira is a 52-year-old female patient, who presented to the emergency room today with complaints of shortness of breath and fever since with increased fatigue. We were asked to see and evaluate her for hypoxia and pneumonia. She will be admitted under observation for: 1. Pneumonia with acute hypoxic respiratory failure. The patient will be continued on Levaquin 750 mg IV q.24 hours x5 doses. I will also continue her on prednisone 40 mg p.o. daily. She can have albuterol nebulizer q.4 hours as needed for shortness of breath and wheezing. I will send her urine for Streptococcus pneumoniae and legionella; they are pending at this time. She does also have a procalcitonin level that is pending at this time. I did order sputum for culture and sensitivity. We will continue IV hydration at normal saline at 75 cc per hour. She does have mild erythema to the posterior pharyngeal and mild tonsillar exudate. I will send a rapid strep. She will be placed on oxygen 4 L nasal cannula as needed to keep O2 saturation above 92%. 2. Sepsis. Suspect this is related to right middle lobe pneumonia. She is meeting SIRS criteria evidenced by tachypnea, tachycardia, elevated WBC's at 12.9 and end organ dysfunction with hypoxic respiratory failure. I will replace her fluids 30 ml/KG to a total of 3500 cc. 3. Chest pressure. suspect this is related to her pneumonia I will trend her troponins and repeat an EKG in the AM. 4. Hypokalemia. I will give her 40 mEq of potassium now and a repeat dose 30 mEq at 2100. 5. Leukocytosis. She has mild elevation in her white count. I suspect this is related to her right middle lobe pneumonia. We will continue with hydration and IV antibiotics and repeat her lab work and CBC in the a.m. 6. Hypertension. I will continue her on metoprolol. 7. Depression. We will continue her Zoloft. 8. Rheumatoid arthritis. She will continue on her Plaquenil 400 mg p.o. daily. 9. FEN. She will be placed on a heart-healthy, low-sodium diet. Caffeine okay. 10. Code status. She is a full code. 11. DVT prophylaxis. I will place her on Lovenox subcu. 12. Disposition. She will be placed observation status for pneumonia. TIME SPENT: Time spent on this admission was approximately 60 minutes, greater than half the time was spent [id number] with the patient obtaining my history and physical, the other half the time was spent going over my plan of care and implementing my plan of care. I have discussed this with my attending, Dr. Key Barrios; she is in agreement with my plan. RHODA CHENG, [place] [id number]/[facility] #: [id number] GREGG
--- NOTE | 2017-09-02 15:44 | PN ---
Sepsis Event Evaluation Date of Evaluation: 09/02/17 Time of Evaluation: 15:30 Current Stage of Sepsis: Severe Sepsis Vital Signs - Last 12 Hours: Vital Signs - 12 hr Temp Pulse Resp BP Pulse Ox 09/02/17 13:47 16 09/02/17 13:10 98.9 F 88 16 126/72 93 09/02/17 12:51 98.2 F 96 22 107/89 97 09/02/17 12:49 95 30 107/89 97 09/02/17 12:00 88 24 100 09/02/17 11:18 91 25 127/80 97 09/02/17 11:00 93 20 99 09/02/17 10:00 110 26 88 09/02/17 09:32 93 15 94 09/02/17 09:14 96 120/87 91 09/02/17 09:13 102 92 09/02/17 08:59 98.2 F 91 18 114/77 89 Lactic Acid: 09/02/17 09:36 Lactic Acid 0.9 Exceptions to Standard of Care: Patient is currently receiving fluid bolus- for a total of 30 ml /kg 3500 cc total to be given. - Cardiopulmonary Exam Capillary Refill: Immediate Respiratory: Symmetrical Chest Expansion and Respiratory Effort, - - exp. wheezes bilat, Cardiovascular: NL Sounds; No Murmurs; No JVD, No Edema, - - Peripheral Pulse Exam Radial Pulses: Bilateral Normal Pedal Pulses: Bilateral Normal Posterior Tibial Pulse: Bilateral Normal - Skin Exam Skin Exam: Normal Turgor, [place] - [place] Coma Scale Best Eye Response: 4 - Spontaneous Best Motor Response: 6 - Obeys Commands Best Verbal Response: 5 - Oriented Coma Scale Total: 15 Assess/Plan/Problems-Billing Assessment: Patient reports that she is feeling better, states that her shortness of breath has improved. Will continue to monitor.
[2017-09-02] MEDS: NS 0.9% 1000 ML* 2,000 ML IV ONE ×2 (16:36→17:30)
--- NOTE | 2017-09-02 20:52 | PN ---
Hospitalist Progress Note Date of Service: 09/02/17 Patient states that she is feeling much better after receiving the fluid bolus. alert sitting in the bed. continue to have non-productive cough.
[2017-09-02] MEDS ORDERED: Hydroxychloroquine TAB* 200 MG PO SCH (21:00)
[2017-09-02] MEDS ORDERED: traZODone TAB* 50 MG TAB PO SCH (21:00)
[2017-09-02] MEDS: HYDROcodone/ACETAMIN 5-325 MG* 1 TAB PO PRN (21:56)
[2017-09-03] MEDS: NS 0.9% 1000 ML* 1,000 ML IV SCH (05:51)
[2017-09-03 07:07] LABS: Hematocrit 40 % (35-47); Hemoglobin 13.3 g/dl (12.0-16.0); Mean Corpuscular HGB Conc 34 g/dl (31-36); Mean Corpuscular Hemoglobin 29 pg (27-31); Mean Corpuscular Volume 87 fL (80-97); Red Blood Count 4.57 10^6/ul (4.00-5.40); Red Cell Distribution Width 14 % (10.5-15); White Blood Count 9.7 10^3/ul (3.5-10.8)
[2017-09-03 07:35] LABS: EGFR Non-African American 102.2 (>60)
[2017-09-03 07:44] LABS: ABS Basophils 0.2 10^3/ul (0-0.2); ABS Eosinophils 0.1 10^3/ul (0-0.6); ABS Monocytes 0.7 10^3/ul (0-0.8); ABS Neutrophils 7.6 10^3/ul (1.5-7.7); ABS Nucleated RBC 0 10^3/ul; Eosinophil % 0.8 % (0-6); Lymphocyte % 10.9 % (25-47); Mean Platelet Volume 8.3 um3 (7.4-10.4); Nucleated Red Blood Cells % 0.1; Platelet Count 224 10^3/ul (150-450)
[2017-09-03] MEDS: HYDROcodone/ACETAMIN 5-325 MG* 1 TAB PO PRN (08:59)
[2017-09-03] MEDS: guaiFENesin LIQ* 100 MG/5 ML UDC PO PRN (08:59)
[2017-09-03] MEDS ORDERED: Metoprolol Succinate XL TAB* 25 MG PO SCH (09:00)
[2017-09-03] MEDS ORDERED: Sertraline* 100 MG TAB PO SCH (09:00)
[2017-09-03] MEDS ORDERED: predniSONE TAB* 20 MG PO SCH (09:00)
[2017-09-03] MEDS ORDERED: Levofloxacin 750 MG IVPREMIX(* 750 MG/150 ML BAG IVPB SCH (13:00)
[2017-09-03] MEDS: Enoxaparin(*) 40 MG/0.4 ML SYR SUBCUT SCH (13:07)
--- NOTE | 2017-09-03 15:28 | PN ---
Subjective Date of Service: 09/03/17 Interval History: Pt is feeling much better today. She has had some coughing but no significant sputum production. She is anxious to go home. She is wanting to try to see what her O2 saturation is on RA. Objective Active Medications: Acetaminophen (Tylenol Tab*) 650 mg PO Q4H PRN PRN Reason: FEVER/PAIN Hydrocodone Bitart/Acetaminophen (Kendall 5-325 Tab*) 2 tab PO Q8H PRN PRN Reason: PAIN Last Admin: 09/03/17 08:59 Dose: 2 tab Al Hydrox/Mg Hydrox/Simethicone (Maalox Plus*) 30 ml PO Q6H PRN PRN Reason: INDIGESTION Albuterol (Ventolin 2.5 Mg/3 Ml Neb.Sania*) 2.5 mg INH [id number] AWAKE PRN PRN Reason: sob/wheezing Last Admin: 09/02/17 21:58 Dose: 2.5 mg Enoxaparin Sodium (Lovenox(*)) 40 mg SUBCUT Q24H [facility] Last Admin: 09/03/17 13:07 Dose: 40 mg Guaifenesin (Robitussin*) 5 ml PO Q4H PRN PRN Reason: COUGH Last Admin: 09/03/17 08:59 Dose: 5 ml Hydroxychloroquine Sulfate (Plaquenil Tab*) 400 mg PO BEDTIME [facility] Last Admin: 09/02/17 21:56 Dose: 400 mg Levofloxacin/Dextrose (Levaquin 750 Mg Ivpremix(*)) 750 mg in 150 mls @ 100 mls /hr IVPB Q24H [facility] Stop: 09/07/17 12:59 Last Admin: 09/03/17 13:06 Dose: 100 mls/hr Sodium Chloride (Ns 0.9% 1000 Ml*) 1,000 mls @ 75 mls/hr IV PER RATE [facility] Last Admin: 09/03/17 05:51 Dose: 75 mls/hr Magnesium Hydroxide (Milk Of Magnesia Liq*) 30 ml PO Q4H PRN PRN Reason: CONSTIPATION Metoprolol Succinate (Toprol Xl Tab*) 25 mg PO DAILY [facility] Last Admin: 09/03/17 09:00 Dose: 25 mg Prednisone (Deltasone Tab*) 40 mg PO DAILY [facility] Stop: 09/06/17 09:01 Last Admin: 09/03/17 09:00 Dose: 40 mg Sertraline HCl (Zoloft*) 100 mg PO DAILY [facility] Last Admin: 09/03/17 08:59 Dose: 100 mg Trazodone HCl (Desyrel Tab*) 50 mg PO BEDTIME ZEV Last Admin: 09/02/17 21:56 Dose: 50 mg Zolpidem Tartrate (Ambien Tab*) 10 mg PO BEDTIME PRN PRN Reason: SLEEP Last Admin: 09/02/17 21:56 Dose: 10 mg Vital Signs - 8 hr 09/03/17 09/03/17 09/03/17 08:00 08:59 11:24 Temperature 97.7 F Pulse Rate 80 Respiratory 18 18 18 Rate Blood Pressure 135/84 (mmHg) O2 Sat by Pulse 97 Oximetry 09/03/17 11:53 Temperature Pulse Rate Respiratory 18 Rate Blood Pressure (mmHg) O2 Sat by Pulse Oximetry Oxygen Devices in Use Now: Nasal Cannula Appearance: Middle aged obese female sitting up in bed, NAD Eyes: No Scleral Icterus Ears/Nose/Mouth/Throat: Mucous Membranes Moist Respiratory: Symmetrical Chest Expansion and Respiratory Effort, Clear to Auscultation - with LLL crackles Cardiovascular: NL Sounds; No Murmurs; No JVD, RRR Abdominal: NL Sounds; No Tenderness; No Distention Extremities: No Clubbing, Cyanosis Skin: No Nodules or Sclerosis Neurological: Alert and Oriented x 3 Result Diagrams: 09/03/17 06:37 09/03/17 08:11 Additional Lab and Data: Lab Results 09/02/17 09/02/17 09/02/17 Range/Units 09:35 09:35 09:36 WBC (3.5-10.8) 10^3/ul RBC (4.00-5.40) 10^6/ul Hgb (12.0-16.0) g/dl Hct (35-47) % MCV (80-97) fL MCH (27-31) pg MCHC (31-36) g/dl RDW (10.5-15) % Plt Count (150-450) 10^3/ul MPV (7.4-10.4) um3 Neut % (Auto) (38-83) % Lymph % (Auto) (25-47) % Sevier % (Auto) (0-7) % Eos % (Auto) (0-6) % Baso % (Auto) (0-2) % Absolute Neuts (auto) (1.5-7.7) 10^3/ul Absolute Lymphs (auto) (1.0-4.8) 10^3/ul Absolute Monos (auto) (0-0.8) 10^3/ul Absolute Eos (auto) (0-0.6) 10^3/ul Absolute Basos (auto) (0-0.2) 10^3/ul Absolute Nucleated RBC 10^3/ul Nucleated RBC % INR (Anticoag Therapy) 1.10 H (0.77-1.02) VBG pH (7.33-7.43) VBG pCO2 (41-51) mmHg VBG pO2 (35-45) mmHg VBG HCO3 (24-28) mmol/L VBG O2 Saturation (70-80) % VBG Base Excess (0-4) Sodium 134 L (135-145) mmol/L Potassium 3.0 L (3.5-5.0) mmol/L Chloride 95 L (101-111) mmol/L Carbon Dioxide 27 (22-32) mmol/L Anion Gap 12 H (2-11) mmol/L BUN 11 (6-24) mg/dL Creatinine 0.80 (0.51-0.95) mg/dL Est GFR ( Amer) 90.4 (>60) Est GFR (Non-Af Amer) 74.7 (>60) BUN/Creatinine Ratio 13.8 (8-20) Glucose 99 (70-100) mg/dL Lactic Acid 0.9 (0.5-2.0) mmol/L Calcium 9.3 (8.6-10.3) mg/dL Total Bilirubin 0.70 (0.2-1.0) mg/dL AST 27 (13-39) U/L ALT 20 (7-52) U/L Alkaline Phosphatase 102 (34-104) U/L Total Creatine Kinase 100 (10-223) U/L Troponin I 0.03 (<0.04) ng/mL C-Reactive Protein 220.10 H (<8.01) mg/L B-Natriuretic Peptide ( - 100) pg/mL Total Protein 7.7 (6.4-8.9) g/dL Albumin 3.7 (3.2-5.2) g/dL Globulin 4.0 (2-4) g/dL Albumin/Globulin Ratio 0.9 L (1-3) Monoscreen 09/02/17 09/02/17 09/02/17 Range/Units 09:36 09:37 09:37 WBC 12.9 H (3.5-10.8) 10^3/ul RBC 4.73 (4.00-5.40) 10^6/ul Hgb 14.0 (12.0-16.0) g/dl Hct 41 (35-47) % MCV 86 (80-97) fL MCH 30 (27-31) pg MCHC 35 (31-36) g/dl RDW 13 (10.5-15) % Plt Count 277 (150-450) 10^3/ul MPV 7.9 (7.4-10.4) um3 Neut % (Auto) 84.8 H (38-83) % Lymph % (Auto) 7.5 L (25-47) % Sevier % (Auto) 6.5 (0-7) % Eos % (Auto) 0.5 (0-6) % Baso % (Auto) 0.7 (0-2) % Absolute Neuts (auto) 10.9 H (1.5-7.7) 10^3/ul Absolute Lymphs (auto) 1.0 (1.0-4.8) 10^3/ul Absolute Monos (auto) 0.8 (0-0.8) 10^3/ul Absolute Eos (auto) 0.1 (0-0.6) 10^3/ul Absolute Basos (auto) 0.1 (0-0.2) 10^3/ul Absolute Nucleated RBC 0 10^3/ul Nucleated RBC % 0.1 INR (Anticoag Therapy) (0.77-1.02) VBG pH 7.43 (7.33-7.43) VBG pCO2 39 L (41-51) mmHg VBG pO2 72 H (35-45) mmHg VBG HCO3 26.1 (24-28) mmol/L VBG O2 Saturation 97.0 H (70-80) % VBG Base Excess 1.6 (0-4) Sodium (135-145) mmol/L Potassium (3.5-5.0) mmol/L Chloride (101-111) mmol/L Carbon Dioxide (22-32) mmol/L Anion Gap (2-11) mmol/L BUN (6-24) mg/dL Creatinine (0.51-0.95) mg/dL Est GFR ( Amer) (>60) Est GFR (Non-Af Amer) (>60) BUN/Creatinine Ratio (8-20) Glucose (70-100) mg/dL Lactic Acid (0.5-2.0) mmol/L Calcium (8.6-10.3) mg/dL Total Bilirubin (0.2-1.0) mg/dL AST (13-39) U/L ALT (7-52) U/L Alkaline Phosphatase (34-104) U/L Total Creatine Kinase (10-223) U/L Troponin I (<0.04) ng/mL C-Reactive Protein (<8.01) mg/L B-Natriuretic Peptide 43 ( - 100) pg/mL Total Protein (6.4-8.9) g/dL Albumin (3.2-5.2) g/dL Globulin (2-4) g/dL Albumin/Globulin Ratio (1-3) Monoscreen Pending Microbiology and Other Data: Microbiology 09/02/17 12:28 Urine Culture - Final Urine No Growth (<1,000 CFU/mL) 09/03/17 09:32 Group A Streptococcus Rapid Screen - Final Throat Specimen received for Rapid Strep A Molecular testing 09/02/17 10:02 Aerobic Blood Culture - Preliminary Blood Venous No Growth Day 1 Anaerobic Blood Culture - Preliminary No Growth Day 1 09/02/17 09:35 Aerobic Blood Culture - Preliminary Blood Venous No Growth Day 1 Anaerobic Blood Culture - Preliminary No Growth Day 1 09/02/17 12:07 Legionella Urinary Antigen - Final Urine Negative Legionella Antigen Streptococcus pneumoniae Ag Screen - Final Negative S. pneumo Antigen Assess/Plan/Problems-Billing Ms Sequeira is a 52 yo F who has a h/o HTN and RA who presented to the ER with c/o SOB and fever and was admitted for CAP with acute hypoxic respiratory failure. - Patient Problems (1) CAP (community acquired pneumonia) Current Visit: Yes Status: Acute Code(s): J18.9 - PNEUMONIA, UNSPECIFIED ORGANISM SNOMED Code(s): 096157939 Comment: Pt is markedly improved today. She unexpectedly improved to the point where she can be discharged home today. She will continue on levaquin for 5 more doses. She will also be discharged with an albuterol inhaler for wheezing. (2) Acute respiratory failure with hypoxia Current Visit: Yes Status: Acute Code(s): J96.01 - ACUTE RESPIRATORY FAILURE WITH HYPOXIA SNOMED Code(s): 31034785 Comment: Resolved unexpectedly today. She is 96% on RA. No supplemental O2 needed at this time. (3) Severe sepsis Current Visit: Yes Status: Acute Code(s): A41.9 - SEPSIS, UNSPECIFIED ORGANISM; R65.20 - SEVERE SEPSIS WITHOUT SEPTIC SHOCK SNOMED Code(s): 68777637 Comment: Resolved. (4) HTN (hypertension) Current Visit: Yes Status: Acute Code(s): I10 - ESSENTIAL (PRIMARY) HYPERTENSION SNOMED Code(s): 75014021 Comment: Good control. Continue home medication regimen. (5) Rheumatoid arthritis Current Visit: Yes Status: Acute Code(s): M06.9 - RHEUMATOID ARTHRITIS, UNSPECIFIED SNOMED Code(s): 96447411 Comment: Continue plaquenil. (6) DVT prophylaxis Current Visit: Yes Status: Acute Code(s): SKG4971 - SNOMED Code(s): 628165581 Comment: lovenox (7) Full code status Current Visit: Yes Status: Acute Code(s): Z78.9 - OTHER SPECIFIED HEALTH STATUS SNOMED Code(s): 280212893 Status and Disposition: d/c home
[2017-09-03 18:21] VITALS: BP 153/95
--- NOTE | 2017-09-04 12:09 | DS ---
CC: Dr. Magallanes * DISCHARGE SUMMARY: DATE OF ADMISSION: 09/02/17 DATE OF DISCHARGE: 09/03/17 PRIMARY CARE PROVIDER: Dr. Magallanes. PRINCIPAL DIAGNOSIS: Community-acquired pneumonia with acute hypoxic respiratory failure and severe sepsis - resolved quickly. SECONDARY DIAGNOSES: 1. Rheumatoid arthritis. 2. Hypertension. DISCHARGE MEDICATIONS: 1. Sertraline 100 mg p.o. daily. 2. Ambien 10 mg p.o. at bedtime p.r.n. insomnia. 3. Metoprolol XL 25 mg p.o. daily. 4. Hydroxychloroquine 400 mg p.o. daily. 5. Meloxicam 7.5 mg p.o. b.i.d. p.r.n. pain. 6. Marshall 5/300 one tab p.o. q.6 hours p.r.n. pain. 7. Trazodone 50 to 100 mg p.o. at bedtime. 8. Prednisone 30 mg p.o. daily x2 days and 20 mg x2 days and 10 mg x2 days. 9. Levofloxacin 500 mg p.o. daily. 10. Albuterol 2 puffs inhaled q.4 hours p.r.n. shortness of breath. HOSPITAL COURSE: Ms. Sequeira is a 52-year-old female who has a history of hypertension and rheumatoid arthritis, on Plaquenil, who presents to the emergency room with complaints of shortness of breath and fever. The patient was ultimately identified to have a probable community-acquired pneumonia with associated severe sepsis and acute hypoxic respiratory failure. The patient was requiring initially 4 liters of supplemental oxygen. She had an elevated white blood cell count, was tachycardic and tachypneic. The patient received IV fluid. She received Levaquin. Procalcitonin was drawn and was negative. Her CRP was noted to be markedly elevated to 20. With initiation of antibiotic therapy and IV fluids, the patient markedly improved very quickly. On 09/03/17 , the patient was feeling quite a bit better. She was no longer requiring any supplemental oxygen. At that point, the patient was asking to be discharged home. Given how well the patient appeared and the fact that she was no longer requiring supplemental oxygen and her lab work is normalized, the decision was made that the patient could be discharged home today. FOLLOWUP CONCERNS: The patient is being discharged home today, 09/03/17. ACTIVITY LEVEL: As tolerated. DIET: Regular. CONDITION ON DISCHARGE: Stable. The patient should follow up with Dr. Magallanes in the next 4 to 7 days. TIME SPENT: Twenty minutes were spent discharging this patient. [id number]/[facility] #: [id number] MTDD
== END 2017-09-03 17:45 | disposition home or self-care (01) ==
LOC: ED 08:57 → SSU 12:32
PROVIDERS: ADMIT Hospitalist; ATTEND Hospitalist
DX: A41.9 Sepsis, unspecified organism (principal); R65.20 Severe sepsis without septic shock; J18.9 Pneumonia, unspecified organism; J96.01 Acute respiratory failure with hypoxia; M06.9 Rheumatoid arthritis, unspecified; I10 Essential (primary) hypertension; R50.9 Fever, unspecified; F32.9 Major depressive disorder, single episode, unspecified; F43.20 Adjustment disorder, unspecified; R00.2 Palpitations; Z87.891 Personal history of nicotine dependence
CPT/HCPCS: 36415; 71046; 80048; 80053; 81003; 81015; 82550; 82803; 83605; 83735; 83880; 84145; 84484; 85025; 85610; 86140; 86308; 87040; 87086; 87651; 87899; 93005; 96361; 96365; 99284; A9270-GY; G0378; J1650; J7512